=== PATIENT | male | born 1980 | race Caucasian/White ===

== ENCOUNTER 2019-12-08 16:08 | Emergency (ER) | payer MEDICAID, SELFPAY ==
[2019-12-08 16:09] VITALS: BP 128/79; PULSE 87; RESP 16; TEMP 36.9; O2SAT 97; BMI 31.3
--- NOTE | 2019-12-08 16:18 | ED.VIS.INJ ---
History of Present Illness Chief Complaint: Upper Extremity Injury Informant: Patient Onset: Yesterday Mechanism/Context: Blunt Injury Quality of Pain: Dull, Aching Location: Right hand and fingers Current Severity: Mild Maximum Severity: Moderate Worsened by: Making a fist or grasping something Relieved by: Rest Narrative: Patient is a 39-year-old [id number]-loerliag male who presents with injury to his right hand and fingers. This occurred yesterday helping his brother work on a car project gave out. He presents because of increased swelling, discoloration and pain. He denies paresthesia, anesthesia or motor weakness. He is a smoker. He has no history of peripheral vascular disease. He has no history of diabetes. Tetanus Immunization: 5-10 years Prior similar symptoms: No Recent Illness/Hospitalization: No - Past Medical History (1) No significant past medical history Status: Acute Past Medical History - Allergies and Home Meds Allergies/Adverse Reactions: Allergies No Known Allergies Allergy (Verified 12/08/19 16:11) Primary Care Physician: Sukhdev Mart MD [Primary Care Provider] - Past Medical History: None Surgical History: no surgical history Lives: Alone Smoking Status: Current every day smoker Alcohol: Sober - 2012 Drugs: None Review of Systems General: Denies: Chills, Fever, Malaise Musculoskeletal: Reports: Swelling, Extremity Pain. Denies: Myalgias, Arthralgias, Neck pain, Back pain Skin: Denies: Rash, Abscess, Abrasions, Wounds Neurological: Denies: Weakness, Parasthesia, Numbness Hematologic: Denies: Easy bruising, Easy bleeding Physical Exam Vital Signs/Narrative: Vital Signs Temp Pulse Resp BP Pulse Ox 12/08/19 16:09 98.4 F 87 16 128/79 H 97 Inital Vital Signs reviewed: Yes General: Well nourished, Well developed Head: Normocephalic, Atraumatic Eyes: Perrl, EOMI. Negative for: Pale conjunctiva, Scleral icterus Cardiovascular: Regular rate, Regular rhythm Respiratory: No distress Extremeties: The right hand is swollen with ecchymosis noted over the third and fourth metacarpal. There is discoloration proximal phalanx region of the right long and ring finger. There is no rotational malalignment. Capillary refill is normal. Sensation is normal. The extensor commonness, extensor minimize and extensor indices tendon are intact. Flexor mechanism intact. There is no subungual hematoma of the fingers or thumb. Skin: Normal color, No rash, Trauma. Negative for: Cyanosis, Diaphoresis, Jaundice Neurological: Alert, Oriented x3, Cranial nerves II-XII grossly intact, Normal Strength, Normal Sensation Psychological: Normal affect, Normal Mood - Glascow Coma Scale Eye Opening: Spontaneous Motor: Obeys Commands Verbal: Oriented Coma Scale Total: 15 Diagnostic/Tx/Re-eval Chest X-Ray - ED: Read by ED Physician, - - 3 view x-ray of the hand reveals no evidence of fracture, foreign body, subluxation or dislocation. There is soft tissue swelling. - Medical Decision Making X-ray of the hand was obtained to rule out fracture. Differential contusion versus fracture. ED Disposition - Plan for ED Patient: Disposition: Home or Assisted Living Diagnosis: Contusion of right hand including fingers Instructions: CRUSH INJURY, Hand/Finger Referrals: Sukhdev Mart MD [Primary Care Provider] - Additional Instructions: Apply ice 20 to 30 minutes per application 6 times a day. Take either 4 ibuprofen tablets every 8 hours or 2 Aleve tablets every 12 hours for next 3 days.
--- NOTE | 2019-12-08 16:30 | RAD_ITS ---
STUDY: X-RAY - RIGHT HAND REASON FOR EXAM: Male, 39 years old. 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 COMPARISON: None. FINDINGS: Normal radiocarpal articulation. Normal distal radioulnar joint. Normal visualized carpal bones. Normal carpal articulations Normal carpometacarpal articulation of the thumb. Normal second through fifth carpometacarpal joints. Old healed fracture of the fifth metacarpal.. Normal metacarpophalangeal joint of the thumb. Normal interphalangeal joint of the thumb. Normal proximal and distal phalanges of the thumb. Normal metacarpophalangeal joints of the second through fifth fingers. Normal proximal and distal interphalangeal joints of the second through fifth fingers. Normal phalanges of the second through fifth fingers. The soft tissue structures are unremarkable. RAD/Hand Min 3 Views IMPRESSION: Old healed fracture of the fifth metacarpal. No acute fracture or dislocation Electronically Signed: Sukhdev Ndiaye MD at 16:44 EDT , Service support ,
[2019-12-08 17:50] VITALS: PULSE 98; RESP 18; O2SAT 96
== END 2019-12-08 17:54 | disposition home or self-care (01) ==
PROVIDERS: Emergency Provider Emergency Medicine; PCP Family Medicine
DX: S60.221A Contusion of right hand, initial encounter (principal); X58.XXXA Exposure to other specified factors, initial encounter; Y93.9 Activity, unspecified; Y92.9 Unspecified place or not applicable; F17.200 Nicotine dependence, unspecified, uncomplicated
CPT/HCPCS: 73130; 99282

== ENCOUNTER 2020-01-02 23:44 | Emergency (ER) | payer MEDICAID, SELFPAY ==
[2020-01-02 23:45] VITALS: BP 113/79; PULSE 87; RESP 19; TEMP 36.9; O2SAT 97; BMI 30.9
[2020-01-02 23:48] VITALS: O2SAT 95
--- NOTE | 2020-01-02 23:54 | NURSING ---
when gathering further information from the pt he does that he recently was released from [facility] and has had a cough for a week with no relief with medication and has had some fatigue.
--- NOTE | 2020-01-03 00:26 | ED.DCSUM_ITS ---
History of Present Illness Chief Complaint: Cough Informant: Patient Onset: Weeks - 1 Context: Gradual Onset Timing: Continuous Quality: [employer] cough Location: chest Current Severity: Moderate Maximum Severity: Moderate Worsened by: - - coughing Relieved by: - - nothing Associated Symptoms: Nasal Congestion, Nonproductive cough. Negative for: Headache, Myalgias, Nausea, Vomiting, Diarrhea, Shortness of Breath, Chest Pain, Hemoptysis Narrative: Patient states he is healthy, he was incarcerated for a couple years but got out of retirement 2 months ago and has been basically staying home since then, during the national coronavirus emergency. He feels like he has bronchitis. He has been sick for about a week, no fevers. He has developed no dyspnea. Cough has been nonproductive. Still smoking. States he was doing some things around the trailer he lives in with his family, since no work has been done for the last couple years when he was in retirement, and he was tor[place] on a ranch when he had sudden onset of pain in the left shoulder yesterday. He states this is happened multiple times in the past. He can still move it but it hurts. When he turns his head/neck to the right, the pain increases along the trapezius into the subacromial area and into the lateral aspect of the biceps and feels burning. States he has a history of degenerative disc issue in the neck. - Past Medical History (1) DDD (degenerative disc disease), cervical Status: Chronic Past Medical History - Allergies and Home Meds Allergies/Adverse Reactions: Allergies No Known Allergies Allergy (Verified 01/02/20 23:45) Primary Care Physician: Sukhdev Mart MD [Primary Care Provider] - Surgical History: no surgical history Lives: With Family Smoking Status: Current every day smoker Drugs: None Review of Systems General: Denies: Chills, Fever, Sweats Eyes: Denies: Visual changes - bilaterally, Diplopia ENT: Reports: Rhinorrhea - And congestion. Denies: Bilateral ear pain, Sore throat Cardiovascular: Denies: Chest pain, Palpitations Respiratory: Reports: Cough. Denies: Dyspnea, Sputum, Dyspnea on exertion, Orthopnea Gastrointestinal: Denies: Abdominal pain, Nausea, Vomiting, Diarrhea, Melena, Hematochezia Genitourinary: Denies: Dysuria, Hematuria, Frequency Musculoskeletal: Reports: Neck pain, Extremity Pain - Left shoulder and neck. Denies: Back pain, Swelling Skin: Denies: Rash, Wounds Neurological: Denies: Headache, Weakness, Numbness Physical Exam Vital Signs/Narrative: Vital Signs Temp Pulse Resp BP Pulse Ox 01/02/20 23:45 98.4 F 87 19 H 113/79 97 Inital Vital Signs reviewed: Yes General: Well nourished, Well developed, - - No acute distress. Conversational in full sentences. Head: Normocephalic, Atraumatic Eyes: Perrl, EOMI Ears: Normal external canal, TM's clear Nose: Normal Inspection, Congestion. Negative for: Purulent Drainage Mouth/Throat: Normal Inspection, No Posterior Erythema, Airway Patent Neck: Supple, Nontender, No Lymphadenopathy, No Meningismus Cardiovascular: Regular rate, Regular rhythm, No murmurs. Negative for: Tachycardia Respiratory: No distress, CTA bilaterally, Chest nontender Abdomen: Soft, Nontender, Nondistended, Normal bowel sounds Back: Nontender, Normal Inspection. Negative for: CVA tenderness Extremities: No edema, Tenderness - Diffuse about left shoulder including biceps tendon anteriorly, AC joint without swelling or deformity, subacromial area, and supraspinous trapezius, all the way into the cervical paraspinal musculature. Full range of motion of the left shoulder, but pain with reaching overhead more so than abduction. Skin: Normal color, No rash, No Trauma Neurological: Alert, Oriented x3, Cranial nerves II-XII grossly intact, Normal Strength, Normal Sensation, Normal Gait Psychological: Normal affect, Normal Mood Diagnostic/Tx/Re-eval - Medical Decision Making At this time supportive care with anti-inflammatories and rest of the left shoulder is indicated. I do not think he needs x-rays emergently. With regards to his respiratory illness, I am less inclined to think he has coronavirus infection given his symptoms of rhinorrhea and congestion and lack of a fever for the past week with this cough/illness. I do not think he needs a chest x- ray since he has no dyspnea and is not hypoxic at 97% on room air. His other vital signs are normal. He is given prescriptions for supportive care including an albuterol inhaler for bronchospasm, Tessalon Perles, Naprosyn, as well as doses of antitussive and Toradol here in the ER prior to discharge. Discussed all this along with orthopedic follow-up for recurrent issues in the shoulder, he is comfortable with this plan we discussed reasons to return. ED Disposition - Plan for ED Patient: Disposition: Home or Assisted Living Diagnosis: Acute bronchitis, Left shoulder strain Instructions: ED Shoulder Sprain, Acute Bronchitis Prescriptions: Naproxen [Naprosyn] 500 mg PO BID PRN #20 tab Transmission Status: Pending to [facility] Benzonatate [Tessalon Perle] 200 mg PO TID PRN PRN #20 cap PRN Reason: Cough Transmission Status: Pending to [facility] Albuterol Inhaler [Ventolin Hfa] 1 - 2 puff INHALATION Q4H PRN PRN #1 inhaler PRN Reason: Wheezing Transmission Status: Pending to [facility] Referrals: Sukhdev Mart MD [Primary Care Provider] - 1 Week if not improving Hang Mercedes DO [STAFF PHYSICIAN] - (Call for appointment for recurring shoulder issues.)
[2020-01-03] MEDS: guaiFENesin Dm 10 ML UDC PO (00:35)
[2020-01-03] MEDS: Ketorolac 60 MG/2 ML Vial IM (00:35)
[2020-01-03] MEDS: Benzonatate 100 MG Capsule 200 MG PO (00:35)
[2020-01-03 00:58] VITALS: BP 112/63; PULSE 87; RESP 18; TEMP 36.9; O2SAT 96
== END 2020-01-03 00:58 | disposition home or self-care (01) ==
LOC: ED 01-03 00:55
PROVIDERS: Emergency Provider Emergency Medicine; PCP Family Medicine
DX: J20.9 Acute bronchitis, unspecified (principal); S46.912A Strain of unspecified muscle, fascia and tendon at shoulder and upper arm level, left arm, initial encounter; X58.XXXA Exposure to other specified factors, initial encounter; Y93.9 Activity, unspecified; Y92.9 Unspecified place or not applicable; Y99.9 Unspecified external cause status; M50.30 Other cervical disc degeneration, unspecified cervical region; F17.200 Nicotine dependence, unspecified, uncomplicated
CPT/HCPCS: 96372; 99283

== ENCOUNTER 2020-04-23 15:43 | Emergency (ER) | payer MEDICARE, MEDICAID, SELFPAY ==
[2020-04-23 15:44] VITALS: BP 159/81; PULSE 102; RESP 18; TEMP 36.4; O2SAT 96; BMI 30.6
--- NOTE | 2020-04-23 16:24 | ED.VIS.BACK ---
History of Present Illness Informant: Patient Onset: Yesterday Context: Sudden Onset Injury: Lifting, Bending Timing: Continuous Quality: Sharp Location: Lumbar Current Severity: Severe Maximum Severity: Severe Worsened by: improves with: Movement, Ambulation, Bending Relieved by: Nothing Narrative: 39-year-old male presents to the emergency department with back pain. 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 It is on the right side. It does not radiate. Is worse with movement bending twisting and lifting. He has no upper or lower extremity numbness tingling or weakness. He has not lost control of his bowel or bladder. He has not had a fever. Denies trauma. Denies any other review of systems at this time. Prior similar symptoms: No Recent Illness/Hospitalization: No <Tee Powers - Last Filed: 04/23/20 16:24> <Av Guido - Last Filed: 04/23/20 17:16> Chief Complaint: Other, Pain/Inj Past Medical History Prior records reviewed: Yes Past Medical History: None Surgical History: no surgical history Lives: With Family Smoking Status: Current every day smoker Alcohol: Occasional Drugs: None <Tee Powers - Last Filed: 04/23/20 16:24> <Av Guido - Last Filed: 04/23/20 17:16> - Allergies and Home Meds Allergies/Adverse Reactions: Allergies No Known Allergies Allergy (Verified 04/23/20 15:46) Primary Care Physician: Sukhdev Mart MD [Primary Care Provider] - Review of Systems All systems negative except as indicated General: Denies: Chills, Fever, Sweats Eyes: Denies: Visual changes - bilaterally, Diplopia ENT: Denies: Rhinorrhea, Sore throat Cardiovascular: Denies: Chest pain, Palpitations Respiratory: Denies: Dyspnea, Cough, Dyspnea on exertion Gastrointestinal: Denies: Abdominal pain, Nausea, Vomiting, Diarrhea, Melena, Hematochezia Genitourinary: Denies: Dysuria, Hematuria, Frequency Musculoskeletal: Reports: Back pain. Denies: Myalgias, Arthralgias, Neck pain, Swelling, Extremity Pain Skin: Denies: Rash, Wounds Neurological: Denies: Headache, Weakness, Numbness <Tee Powers - Last Filed: 04/23/20 16:24> Physical Exam Vital Signs/Narrative: Vital Signs Temp Pulse Resp BP Pulse Ox 04/23/20 15:44 97.5 F L 102 H 18 159/81 H 96 Inital Vital Signs reviewed: Yes General: Well nourished, Well developed Head: Normocephalic, Atraumatic Eyes: Perrl, EOMI ENT: Moist mucous membranes, No rhinorrhea Neck: Supple, Nontender Cardiovascular: Regular rate, Regular rhythm, No murmurs Respiratory: No distress, CTA bilaterally, Chest nontender Abdomen: Soft, Nontender, Nondistended, Normal bowel sounds Back: Normal Inspection, Paraspinal Tenderness, Negative SLR - Right, Negative SLR - Left. Negative for: Spinal tenderness, CVA tenderness Extremeties: Nontender, No edema Skin: Normal color, No rash Neuro: Alert, Oriented, Normal Strength, Normal Sensation, Normal DTR, Normal Gait, Normal Reflexes Psychological: Normal affect, Normal Mood <Tee Powers - Last Filed: 04/23/20 16:24> Vital Signs/Narrative: Vital Signs Temp Pulse Resp BP Pulse Ox 04/23/20 15:44 97.5 F L 102 H 18 159/81 H 96 <Av Guido - Last Filed: 04/23/20 17:16> Diagnostic/Tx/Re-eval - Medical Decision Making Patient presents with back pain. Exam is consistent with a lumbar strain. He has no signs or symptoms of cauda equina syndrome. He was reassured. I will prescribe him both Naprosyn and Flexeril. I advised him to rest and ice. He provided a note for work. I will discharge him home and refer him to a primary care physician for follow-up and I given return precautions. He is agreeable with plan of care and all questions are answered. 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 c/o right lower paraspinal back pain and 1 to 2-week history of right hand pain and swelling. Denies any hand trauma. Patient states he does a lot of heavy lifting with work. States his hands have been having swelling and small uncomfortable try to open close it. Well-appearing white male. Vital signs stable afebrile. HEENT exam unremarkable. Lungs are clear. Heart regular rhythm. Abdomen soft nontender. Extremities moves all 4. Neurovascular intact. Specifically his right hand is mildly swollen. He has tenderness to the carpal tunnel to palpation really does not send lightening strength into his middle digits. He is able to flex and extend his hand. There is no signs of infection no colitis. No bony deformity. Back is reproducible right paraspinal tenderness consistent with musculoskeletal etiology. Impression: Right back muscle strain and pain Right hand pain and swelling rule out carpal tunnel <Av Guido - Last Filed: 04/23/20 17:16> ED Disposition <Tee Powers - Last Filed: 04/23/20 16:24> <Av Guido - Last Filed: 04/23/20 17:16> - Plan for ED Patient: Disposition: Home or Assisted Living Diagnosis: Acute lumbar myofascial strain, DDD (degenerative disc disease), cervical Instructions: ED LUMBAR SPRAIN/STRAIN Prescriptions: cycloBENZAPRine HCl [Flexeril] 10 mg PO TID PRN #20 tab PRN Reason: Muscle Spasm Prescription Printed Naproxen [Naprosyn] 500 mg PO BID #14 tab Prescription Printed Referrals: Sukhdev Mart MD [Primary Care Provider] -
[2020-04-23] MEDS: HYDROcodone Bitartrate/Apap 5/325 Tablet PO (17:23)
== END 2020-04-23 17:28 | disposition home or self-care (01) ==
LOC: ED 16:48
PROVIDERS: Emergency Provider Physician Assistant Medical; PCP Family Medicine
DX: M79.641 Pain in right hand (principal); M79.89 Other specified soft tissue disorders; S16.1XXA Strain of muscle, fascia and tendon at neck level, initial encounter; S39.012A Strain of muscle, fascia and tendon of lower back, initial encounter; X58.XXXA Exposure to other specified factors, initial encounter; F17.200 Nicotine dependence, unspecified, uncomplicated
CPT/HCPCS: 99282

== ENCOUNTER 2021-02-05 17:55 | Emergency (ER) | payer MEDICARE, MEDICAID, SELFPAY ==
[2021-02-05 17:56] VITALS: BP 110/72; PULSE 107; RESP 18; TEMP 36.8; O2SAT 96; BMI 34.0
--- NOTE | 2021-02-05 18:33 | EX.ED.DYSGE1 ---
HPI History of Present Illness Chief Complaint: Cough Informant: patient Narrative Narrative: Patient is a 40-year-old male who presents to the emergency department for cough. This is been present over the past 3 or 4 days. He says it has occasionally been productive of yellow sputum. He denies any fevers or chills. He has a headache every time he coughs. He states he has not been able to get much sleep due to his persistent cough. He denies any significant shortness of breath. No chest pain. He states that one of his kids had a cough yesterday and has improved. No known coronavirus exposures. He has not got his Covid vaccine. He denies any significant body aches. No nausea/vomiting or diarrhea. No neck stiffness or rashes. He is a current everyday smoker although he has not been since this started. Has been taking [id number] cough medications which has not been giving him significant relief. He did try to use his inhaler as well which has not helped. [facility] Medical History (Updated 02/05/21 @ 18:[address] Hang Cedillo DO) DDD (degenerative disc disease) Home Medications quetiapine [Seroquel] 50 mg PO BID 08/14/17 [History Last Taken Unknown] sertraline 50 mg PO DAILY 08/14/17 [History Last Taken Unknown] albuterol sulfate 1 - 2 puff INHALATION Q4H PRN PRN #1 inhaler 01/03/20 [Rx Last Taken Unknown] benzonatate 200 mg PO TID PRN PRN #20 cap 01/03/20 [Rx Last Taken Unknown] naproxen 500 mg PO BID PRN #20 tab 01/03/20 [Rx Last Taken Unknown] cyclobenzaprine 10 mg PO TID PRN #20 tab 04/23/20 [Rx Last Taken Unknown] naproxen 500 mg PO BID #14 tab 04/23/20 [Rx Last Taken Unknown] benzonatate [Tessalon Perles] 100 mg PO BID PRN #14 cap 02/05/21 [Rx Last Taken Unknown] Allergy/AdvReac Type Severity Reaction Status Date / Time No Known Allergies Allergy Verified 02/05/21 17:55 Social History Smoking Status: Current every day smoker ROS ROS ED Constitutional Constitutional ED: Denies chills or fever(s) Eyes Eyes: Denies change in vision ENT ENT ED: Denies epistaxis or rhinorrhea Cardiovascular Cardiovascular: Denies chest pain or palpitations Respiratory/Chest Respiratory/Chest: Reports cough; Denies dyspnea or dyspnea on exertion Gastrointestinal Gastrointestinal: Denies abdominal pain, diarrhea, nausea or vomiting Musculoskeletal Musculoskeletal: Denies back pain or neck pain Integumentary Denies rash Neurologic Neurologic: Reports headache(s); Denies dizziness or weakness EXAM Physical Exam Const Vital Signs: 02/05/21 17:56 02/05/21 18:11 Temperature 98.2 F Temperature Source Temporal Pulse Rate 107 H Respiratory Rate 18 Respiratory Effort Normal Non-Labored Blood Pressure 110/72 Blood Pressure Mean 84 Pulse Ox 96 Oxygen Delivery Method Room Air Positive well nourished and well developed General Appearance ED: well developed and NAD HEENT Reports normocephalic, head/scalp atraumatic and moist mucous membranes Eyes PERRL and EOMs intact bilaterally Neck supple General: Negative for tenderness Chest Wall inspection of chest normal Resp normal respiratory effort and clear to auscultation bilaterally Auscultation: Negative for rales, rhonchi or wheezes Cardio regular rate, regular rhythm and no murmurs GI normal to inspection, nondistended, normoactive bowel sounds and non-tender Palpation: soft; Negative for guarding or rebound tenderness present Extremity normal to inspection General Extremety ED: Negative for edema or tenderness General Extremity: Negative for edema Neuro no sensory deficits noted Sensorium / Orientation: alert Motor Exam: strength 5/5 throughout Psych mental status grossly normal Skin no rashes or lesions noted MDM MDM MDM Narrative Medical decision making narrative: Patient presents to the emergency department for cough and headache whenever he coughs. His main concern was getting rid of the cough. I did offer a Covid test as well as chest x-ray but patient is refusing. He just wants medications to help him feel better. Patient symptoms are most likely viral in nature. We will write him a prescription for Tessalon Perles as he states that this has helped before. He is to self isolate until resolution of symptoms. Return precautions are reviewed with him including developing significant fever/chills or shortness of breath. He understands and is agreeable this plan. Will discharge home in stable condition. All questions answered. Discharge Plan Triage Chief Complaint: Cough ED Provider: Hang Cedillo Dx/Rx/DC Orders Clinical Impression: Cough, URI (upper respiratory infection) Instructions: ED URI, Viral, No Abx (Adult) Prescriptions: New benzonatate [Tessalon Perles] 100 mg capsule 100 mg PO BID PRN (Reason: cough) Qty: 14 RF: 0 No Action sertraline 50 MG tablet 50 mg PO DAILY RF: 0 quetiapine [Seroquel] 50 MG tablet 50 mg PO BID RF: 0 benzonatate 100 MG capsule 200 mg PO TID PRN PRN (Reason: Cough) Qty: 20 RF: 0 albuterol sulfate 1 INHALER inhaler 1 - 2 puff inhalation Q4H PRN PRN (Reason: Wheezing) Qty: 1 RF: 0 naproxen 500 MG tablet 500 mg PO BID PRN Qty: 20 RF: 0 cyclobenzaprine 10 MG tablet 10 mg PO TID PRN (Reason: Muscle Spasm) Qty: 20 RF: 0 naproxen 500 MG tablet 500 mg PO BID Qty: 14 RF: 0 Primary Care Provider: Sukhdev Mart Referrals: Sukhdev Mart MD [Primary Care Provider] - 3-5 Days if not improving Disposition Disposition: Home, self care Discharge Date/Time: 02/05/21 18:39
== END 2021-02-05 18:39 | disposition home or self-care (01) ==
LOC: ED 18:36
PROVIDERS: Emergency Provider Emergency Medicine; PCP Family Medicine
DX: R05 Cough (principal); J06.9 Acute upper respiratory infection, unspecified; F17.200 Nicotine dependence, unspecified, uncomplicated; Z79.1 Long term (current) use of non-steroidal anti-inflammatories (NSAID)
CPT/HCPCS: 99283

== ENCOUNTER 2021-04-16 02:31 | Emergency (ER) | payer MEDICARE, MEDICAID, SELFPAY ==
[2021-04-16 02:32] VITALS: BP 137/94; PULSE 134; RESP 24; TEMP 36.7; O2SAT 98; BMI 30.6
--- NOTE | 2021-04-16 04:09 | EX.ED.DYSGE1 ---
HPI History of Present Illness Chief Complaint: Other, Pain/Inj Informant: patient Onset/Context/Timing Onset: Today Context: Sudden Onset Timing: Continuous Quality: Dull Location: Right neck and trapezius Worsened by: Certain movements Relieved by: Ibuprofen, naproxen Narrative Narrative: Patient presents with right-sided neck pain that began today. Patient states he turned his head and felt a pop. Patient states that his pain has been constant since that time. Patient describes his pain as dull. Patient states it is worse with certain movements. Patient states he has been taking ibuprofen and naproxen with some relief. Patient states that he called off work because of the pain. Patient states he needs a work note to return to work or else he will get fired. 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 Eliseo Joy DO) History of appendectomy Social History Smoking Status: Current every day smoker tobacco type: cigarettes ROS ROS ED Constitutional Constitutional ED: Denies chills or fever(s) Eyes Eyes: Denies blurry vision or change in vision ENT ENT ED: Denies rhinorrhea or sore throat Cardiovascular Cardiovascular: Denies chest pain or palpitations Respiratory/Chest Respiratory/Chest: Denies cough or dyspnea Gastrointestinal Gastrointestinal: Denies nausea or vomiting Genitourinary Genitourinary ED: Denies dysuria or hematuria Musculoskeletal Musculoskeletal: Denies back pain or neck pain Integumentary Denies abscess or rash Neurologic Neurologic: Denies headache(s) or weakness Allergic/Immunologic Allergic/Immunologic ED: Denies mouth swelling or urticaria EXAM Physical Exam Const Vital Signs: 04/16/21 02:32 04/16/21 02:46 Temperature 98.1 F Temperature Source Oral Pulse Rate 134 H Respiratory Rate 24 H Respiratory Effort Normal Respiratory Pattern Normal Blood Pressure 137/94 H Blood Pressure Mean 108 Pulse Ox 98 Oxygen Delivery Method Room Air Positive well nourished and well developed General Appearance ED: well developed HEENT Reports moist mucous membranes Neck no JVD Neck Narrative: There is tenderness over the right cervical paraspinal muscles. There is also tenderness over the right trapezius area. There is no midline tenderness. There is no bony crepitance or step-off. There is good range of motion of the cervical spine. Strength is 5/5 bilaterally upper and lower extremities. There are no sensory deficits noted. General: tenderness Neuro oriented x3, CN's II-XII intact bilaterally and no sensory deficits noted Sensorium / Orientation: alert Motor Exam: strength 5/5 throughout Psych mental status grossly normal MDM MDM MDM Narrative Medical decision making narrative: I do not feel x-rays are necessary at this time. Patient was instructed to continue using ice to the area. Patient was instructed to continue taking ibuprofen or naproxen as needed for pain. Patient was given a note for work for today. Patient was instructed to follow-up with his primary care physician in 5 to 7 days. Patient understood and was agreeable with the plan. All questions were answered. Discharge Plan Triage Chief Complaint: Other, Pain/Inj ED Provider: Eliseo Joy Dx/Rx/DC Orders Clinical Impression: Cervical myofascial strain Instructions: ED Neck Sprain or Strain Prescriptions: No Action albuterol sulfate 1 INHALER inhaler 1 - 2 puff inhalation Q4H PRN PRN (Reason: Wheezing) Qty: 1 RF: 0 ibuprofen 800 mg Tablet 800 mg PO TID PRN (Reason: Pain) RF: 0 naproxen 500 MG tablet 500 mg PO BID PRN PRN (Reason: Pain) RF: 0 Stand Alone Forms: ED Work / School Excuse Primary Care Provider: Sukhdev Mart Referrals: Sukhdev Mart MD [Primary Care Provider] - Disposition Disposition: Home, Self Care
== END 2021-04-16 04:26 | disposition home or self-care (01) ==
PROVIDERS: Emergency Provider Emergency Medicine; PCP Family Medicine
DX: S16.1XXA Strain of muscle, fascia and tendon at neck level, initial encounter (principal); F17.210 Nicotine dependence, cigarettes, uncomplicated; F31.9 Bipolar disorder, unspecified; J45.909 Unspecified asthma, uncomplicated; F60.3 Borderline personality disorder; F43.10 Post-traumatic stress disorder, unspecified; X58.XXXA Exposure to other specified factors, initial encounter; Y93.9 Activity, unspecified; Y92.89 Other specified places as the place of occurrence of the external cause; Y99.9 Unspecified external cause status
CPT/HCPCS: 99283

== ENCOUNTER 2021-06-11 09:55 | Emergency (ER) | payer MEDICARE, MEDICAID, SELFPAY ==
[2021-06-11 09:56] VITALS: BP 138/91; PULSE 97; RESP 16; TEMP 36.4; O2SAT 99; BMI 30.2
--- NOTE | 2021-06-11 10:29 | EDS_ITS ---
HPI History of Present Illness Chief Complaint: Back Narrative Narrative: 41-year-old male presenting with mid back pain. He states that he has been moving a lot of furniture because his sister needed assistance with this. He states that his back pain seems to be bilateral in the mid back. It is worse with twisting and bending. Patient has no paresthesias. No loss of bladder or bowel control. No direct trauma. He is ambulatory. 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 PTSD (post-traumatic stress disorder) Smoker Home Medications cyclobenzaprine 10 mg PO TID PRN #20 tablet 06/11/21 [Rx Last Taken Unknown] naproxen [Naprosyn] 500 mg PO BID PRN #20 tab 06/11/21 [Rx Last Taken Unknown] Allergy/AdvReac Type Severity Reaction Status Date / Time No Known Allergies Allergy Verified 06/11/21 10:08 Surgical History History of appendectomy Social History Smoking Status: Current every day smoker tobacco type: cigarettes ROS ROS ED Constitutional Constitutional ED: Denies chills or fever(s) Eyes Eyes: Denies blurry vision or diplopia ENT ENT ED: Denies rhinorrhea or sore throat Cardiovascular Cardiovascular: Denies chest pain or palpitations Respiratory/Chest Respiratory/Chest: Denies dyspnea or sputum Gastrointestinal Gastrointestinal: Denies abdominal pain, nausea or vomiting Genitourinary Genitourinary ED: Denies dysuria or hematuria Musculoskeletal Musculoskeletal: Reports back pain; Denies arthralgias, myalgias or neck pain Integumentary Denies Abrasions or rash Neurologic Neurologic: Denies headache(s) or paresthesias EXAM Physical Exam Const Vital Signs: 06/11/21 09:56 Temperature 97.5 F L Temperature Source Temporal Pulse Rate 97 Respiratory Rate 16 Blood Pressure 138/91 H Blood Pressure Mean 106 Pulse Ox 99 Oxygen Delivery Method Room Air General Appearance ED: Negative for pallor HEENT Reports moist mucous membranes Negative for trauma Eyes PERRL General Eye ED: Yes pale conjunctiva Resp normal respiratory effort and clear to auscultation bilaterally Cardio regular rate and regular rhythm Back/Spine normal to inspection Back/Spine Narrative: No reproducible tenderness to palpation along the thoracic or lumbar spine. No deformities or step-off. Patient's pain is elicited with twisting of the trunk and appears to be at T11-T12 level. No bruising or rash. Extremity normal to inspection Neuro oriented x3 Sensorium / Orientation: alert Psych mental status grossly normal Skin no rashes or lesions noted General Skin Exam: Negative for jaundice or pallor MDM MDM MDM Narrative Medical decision making narrative: 41-year-old male presenting with back pain. He states this is not very significant. He thinks he started having back pain due to helping his sister move furniture. Patient also admits that he is at a homeless intermediate and did not come home before curfew last night. He states that he needs to show he was seen in the emergency room in order to get back into the homeless intermediate. In regards to the patient's pain he was given a shot of Toradol in the ED. He will be given Naprosyn and Flexeril for home. He is given return precautions. Impression: 1. Thoracic strain Discharge Plan Triage Chief Complaint: Back ED Provider: Artie Gomez Dx/Rx/DC Orders Instructions: ED Back Sprain/Strain Prescriptions: New cyclobenzaprine 10 mg tablet 10 mg PO TID PRN (Reason: Muscle Spasm) Qty: 20 RF: 0 naproxen [Naprosyn] 500 mg tablet 500 mg PO BID PRN (Reason: pain) Qty: 20 RF: 0 Primary Care Provider: Sukhdev Mart Referrals: Sukhdev Mart MD [Primary Care Provider] - Disposition Disposition: Home, Self Care
[2021-06-11] MEDS: Ketorolac 15 MG/ML Vial IM (10:39)
== END 2021-06-11 10:57 | disposition home or self-care (01) ==
LOC: ED 10:42
PROVIDERS: Emergency Provider Student in an Organized Health Care Education/Training Program; PCP Family Medicine
DX: S29.012A Strain of muscle and tendon of back wall of thorax, initial encounter (principal); X58.XXXA Exposure to other specified factors, initial encounter; F17.210 Nicotine dependence, cigarettes, uncomplicated; F31.9 Bipolar disorder, unspecified; J45.909 Unspecified asthma, uncomplicated; Z79.1 Long term (current) use of non-steroidal anti-inflammatories (NSAID); Z59.0 Homelessness; F60.3 Borderline personality disorder; F43.10 Post-traumatic stress disorder, unspecified
CPT/HCPCS: 96372; 99282

== ENCOUNTER 2022-06-17 14:04 | Emergency (ER) | payer MEDICARE, MEDICAID, SELFPAY ==
[2022-06-17 14:05] VITALS: BP 138/82; PULSE 96; RESP 18; TEMP 36.8; O2SAT 100; BMI 28.2
--- NOTE | 2022-06-17 14:28 | EX.ED.DYSGE1 ---
HPI History of Present Illness Chief Complaint: Abscess Narrative Narrative: 42-year-old male presenting with right forearm pain. He states he thinks he got bit by something a couple of days ago. He noticed an area of redness on the right forearm on the medial surface dorsally. He states been draining fluid. He states he thought he had a fever but he has not checked with a thermometer. He states I do not feel sick. He states he has a history of a boil behind his ear before but he is unsure of a history of MRSA. He denies any trauma. Patient states this is spontaneously draining on its own. 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 PTSD (post-traumatic stress disorder) Smoker Home Medications cyclobenzaprine 10 mg tablet 10 mg PO TID PRN Muscle Spasm #20 TABLETS 06/11/21 [Rx Last Taken Unknown] naproxen 500 mg tablet (Naprosyn) 500 mg PO BID PRN pain #20 tabs 06/11/21 [Rx Last Taken Unknown] clindamycin HCl 150 mg capsule 450 mg PO TID 10 days #90 caps 06/17/22 [Rx Last Taken Unknown] naproxen 500 mg tablet (Naprosyn) 500 mg PO BID PRN pain #20 tabs 06/17/22 [Rx Last Taken Unknown] Allergy/AdvReac Type Severity Reaction Status Date / Time No Known Allergies Allergy Verified 06/17/22 14:05 Surgical History History of appendectomy Social History Smoking Status: Current every day smoker tobacco type: cigarettes ROS ROS ED Constitutional Constitutional ED: Reports chills and subjective Eyes Eyes: Denies blurry vision or change in vision ENT ENT ED: Denies rhinorrhea or sore throat Cardiovascular Cardiovascular: Denies chest pain or palpitations Respiratory/Chest Respiratory/Chest: Denies cough or dyspnea Gastrointestinal Gastrointestinal: Denies abdominal pain or constipation Genitourinary Genitourinary ED: Denies dysuria or hematuria Musculoskeletal Musculoskeletal: Reports other Details: Right forearm pain Integumentary Reports abscess and rash Neurologic Neurologic: Denies headache(s) or paresthesias Psychiatric Psychiatric: Denies anxiety or depression EXAM Physical Exam Const Vital Signs: 06/17/22 14:05 Temperature 98.2 F Temperature Source Temporal Pulse Rate 96 Respiratory Rate 18 Blood Pressure 138/82 H Blood Pressure Mean 100 Pulse Ox 100 Oxygen Delivery Method Room Air Positive well nourished HEENT Reports moist mucous membranes Eyes PERRL and EOMs intact bilaterally Cardio regular rate and regular rhythm Extremity Extremity Narrative: 3 cm area of fluctuance on the dorsal medial aspect of the forearm. There is a 1.5 cm opening and this is spontaneously draining. He does have some edema around this area but there is no fluctuance. I was not able to express any more pus from the wound by squeezing anywhere else on the forearm. No lymphangitic changes. No lymphadenopathy. Neuro oriented x3 and CN's II-XII intact bilaterally Sensorium / Orientation: alert Psych mental status grossly normal Skin Skin Narrative: As documented above MDM MDM MDM Narrative Medical decision making narrative: Patient appears to have an abscess on the dorsal medial aspect of the right forearm but it is open and spontaneously draining. I do not believe he needs further incision and drainage. It was recommended to him that he soak this 4-5 times a day in hot soapy water. I will start him on clindamycin here. Patient given return precautions. Impression: 1. Right forearm abscess 2. Right forearm cellulitis Lab Data Attestation: I reviewed the patient's lab results. Discharge Plan Triage Chief Complaint: Abscess ED Provider: Artie Gomez Dx/Rx/DC Orders Instructions: ED Abscess Antibiotic Treatment Only Prescriptions: New clindamycin HCl 150 mg capsule 450 mg PO TID 10 Days Qty: 90 0RF naproxen [Naprosyn] 500 mg tablet 500 mg PO BID PRN (Reason: pain) Qty: 20 0RF No Action cyclobenzaprine 10 mg tablet 10 mg PO TID PRN (Reason: Muscle Spasm) Qty: 20 0RF naproxen [Naprosyn] 500 mg tablet 500 mg PO BID PRN (Reason: pain) Qty: 20 0RF Primary Care Provider: Sukhdev Mart Referrals: Sukhdev Mart MD [Primary Care Provider] - Disposition Disposition: Home, Self Care
[2022-06-17] MEDS: Clindamycin HCl 150 MG Capsule 450 MG PO (14:43)
[2022-06-17 14:50] VITALS: RESP 18
== END 2022-06-17 14:50 | disposition home or self-care (01) ==
PROVIDERS: Emergency Provider Student in an Organized Health Care Education/Training Program; PCP Family Medicine; Visit Provider Student in an Organized Health Care Education/Training Program
DX: L03.113 Cellulitis of right upper limb (principal); F17.210 Nicotine dependence, cigarettes, uncomplicated; L02.413 Cutaneous abscess of right upper limb
CPT/HCPCS: 99283

== ENCOUNTER 2022-07-12 16:28 | Emergency (ER) | payer MEDICARE, MEDICAID, SELFPAY ==
[2022-07-12 16:29] VITALS: BP 130/92; PULSE 88; RESP 14; TEMP 36.5; O2SAT 99; BMI 28.8
== END 2022-07-12 17:10 | disposition left against medical advice (07) ==
LOC: ED 17:13
PROVIDERS: PCP Family Medicine
DX: Z04.1 Encounter for examination and observation following transport accident (principal)

== ENCOUNTER 2024-02-21 02:44 | Emergency (ER) | payer MEDICARE, SELFPAY ==
[2024-02-21] VITALS (14 sets, daily range): BP systolic 140–168; BP diastolic 82–115; PULSE 62–119; RESP 15–18; TEMP 36.2–36.4; O2SAT 94–99; BMI 28.0
--- NOTE | 2024-02-21 02:54 | CT_ITS ---
EXAM: CT HEAD WITHOUT INTRAVENOUS CONTRAST CLINICAL INDICATION: Change in Mental Status TECHNIQUE: Multiple axial images were obtained of the head without intravenous contrast. This CT exam was performed using one or more of the following dose reduction techniques: automated exposure control, adjustment of the mA and/or kV according to patient size, and/or use of iterative reconstruction technique. RADIATION DOSE: CTDIvol = 44.99 mGy, DLP = 863.60 mGy-cm COMPARISON: No relevant prior studies available. FINDINGS: BRAIN AND EXTRA-AXIAL SPACES: Unremarkable. No intra- or extra-axial hemorrhage. No evidence of acute infarct. No intracranial mass or mass effect. There is preservation of the montiel/white matter interface. Posterior fossa structures are unremarkable. Ventricles are appropriate for age. No hydrocephalus. Basal cisterns are patent. BONES/JOINTS: Unremarkable. No discrete lytic or blastic abnormalities. SINUSES: Trace mucosal thickening in the floor of the left maxillary sinus and slight mucosal thickening in a few ethmoid air cells. MASTOID AIR CELLS: Unremarkable. Clear. ORBITS: Visualized globes, extraocular muscles, optic nerves and retrobulbar fat appear unremarkable. DENTAL: Advanced periodontal disease, there are periapical lucencies around multiple tooth roots in the maxilla. The mandible is not included. CT/Brain/Head without Contrast IMPRESSION: No acute findings in the head/brain. Advanced periodontal disease. Electronically Signed: Chelsy Barrios MD at 5:25 EDT ,
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
[2024-02-21] MEDS: Acetaminophen 500 MG Tablet 1000 MG PO (03:00)
[2024-02-21] MEDS: LORazepam 2 MG/ML Syringe IV (03:01)
[2024-02-21 03:11] LABS: Absolute Lymphocyte Count 3.24 X10^3/uL (0.83-4.51); Absolute Neutrophil Count 9.6 X10^3/uL (2.0-7.7); Basophil% 0.7 % (0-1); Eosinophil# 0.18 X10^3/uL; Eosinophils% 1.2 % (0-5); Hematocrit 46.6 % (40-54); Hemoglobin 15.5 g/dL (13.0-16.5); Lymphocyte # 3.24 X10^3/ul (0.83-4.51); Lymphocyte % 22.2 % (19-41); Mean Corp Hgb Conc 33.3 g/dL (32-36); Mean Corpuscular Volume 90.1 fL (80-94); Mean Platelet Vol. 9.7 fl (6.2-12.0); Monocyte# 1.43 X10^3/uL; Monocyte% 9.8 % (0-10); NRBC Flagged by Analyzer 0 % (0-5); Neutrophil # 9.62 X10^3/uL (2.7-7.7); Neutrophil % 65.8 % (47-70); Platelet Count 395 K/mm3 (150-450); RBC Distribution Width CV 13.3 % (11.6-14.6); RBC Distribution Width SD 44.2 fl (35.1-43.9); Red Blood Count 5.17 M/mm3 (4.6-6.2); White Blood Count 14.6 K/mm3 (4.4-11.0)
[2024-02-21 03:57] LABS: ALB/GLOB Ratio 1.2 RATIO (0.9-2.4); AST(SGOT) 22 U/L (15-37); Alanine Aminotransfer ALT/SGPT 26 U/L (16-61); Albumin, Serum 4.1 g/dL (3.2-5.0); Alkaline Phosphatase 75 U/L (45-117); Anion Gap 11 (5-15); BUN 14 mg/dL (7-18); BUN/Creat Ratio 9.8 RATIO (10-20); Calcium,Total 9.2 mg/dL (8.5-10.1); Chloride 108 mmol/L (98-107); Creatinine, Serum 1.43 mg/dL (0.70-1.30); EST Glomerular Filtration Rate 57 mL/min (>60); Est Glom Filt Rate - Afr Amer 69 mL/min (>60); Estimated Creatinine Clearance 80.65 ml/min; Globulin 3.4 g/dL (2.2-4.2); Glucose 149 mg/dL (74-106); Potassium 3.2 mmol/L (3.5-5.1); Protein, Total 7.5 g/dL (6.4-8.2); Sodium Level 141 mmol/L (136-145)
[2024-02-21 04:19] LABS: Acetaminophen (Tylenol) Level < 2.0 ug/mL (10.0-30.0); Alcohol, Blood (Medical)-Serum < 3.0 mg/dL; Salicylate 2.3 mg/dL (2.8-20.0)
[2024-02-21 04:52] LABS: Amphetamine Urine VISTA POSITIVE (<1000 ng/mL); Barbiturate Urine VISTA NEGATIVE (< 200 ng/mL); Benzodiazepine Urine VISTA NEGATIVE (< 200 ng/mL); Cocaine Urine VISTA NEGATIVE (< 300 ng/mL); Ecstacy Urine VISTA POSITIVE (< 500 ng/mL); Methadone Urine VISTA NEGATIVE (< 300 ng/mL); PCP Urine VISTA NEGATIVE (< 25 ng/mL); THC Urine VISTA POSITIVE (< 50 ng/mL); Vista UDS pH Range 4
--- NOTE | 2024-02-21 15:34 | NURSING ---
FAXED CHART TO CRISIS
--- NOTE | 2024-02-21 16:13 | NURSING ---
CRISIS IN ROOM
== END 2024-02-21 16:55 | disposition home or self-care (01) ==
PROVIDERS: Emergency Medicine; Emergency Provider Emergency Medicine; PCP Family Medicine; Visit Provider Emergency Medicine
DX: F22 Delusional disorders (principal); F60.3 Borderline personality disorder; S00.81XA Abrasion of other part of head, initial encounter; F17.210 Nicotine dependence, cigarettes, uncomplicated; R51.9 Headache, unspecified; R45.1 Restlessness and agitation; X58.XXXA Exposure to other specified factors, initial encounter
CPT/HCPCS: 70450; 80053; 80307; 80320; 80329; 85025; 96374; 99284; G0480

== ENCOUNTER 2024-07-31 20:17 | Emergency (ER) | payer MEDICARE, MEDICAID, SELFPAY ==
[2024-07-31 20:17] VITALS: BP 141/77; PULSE 104; RESP 18; TEMP 36.7; O2SAT 99
[2024-07-31 21:05] LABS: Mucous, Urine 0 SEEN /hpf (<or=2+); Squamous Epithelial Cells - UA 0 SEEN /hpf (0-5)
[2024-07-31 21:08] LABS: Color, Urine Yellow (Yellow); Glucose, Dipstick Normal (Normal); Ketone-Dipstick Negative (Negative); Leukocyte Esterase-Dipstick 500 /ul (Negative); Nitrite-Dipstick Negative (Negative); Occult Blood-Urine 50 /ul (Negative); Protein-Dipstick 100 mg/dl (Negative); Urine Bilirubin Dipstick Negative (Negative); Urine Clarity Turbid (Clear); Urine Urobilinogen 4 mg/dl (Normal)
[2024-07-31 21:17] LABS: Bacteria 1+ /hpf (None Seen); Red Blood Cells-Urine 0-5 SEEN /hpf (0-5); White Blood Cells >100 SEEN /hpf (0-5)
[2024-07-31 21:20] VITALS: BP 124/82; PULSE 108; RESP 18; TEMP 37.7; O2SAT 97
[2024-07-31 21:26] VITALS: BMI 29.6
[2024-07-31 22:00] VITALS: BP 122/79; PULSE 105; RESP 16; TEMP 37.3; O2SAT 96
[2024-07-31] MEDS: Acetaminophen 500 MG Tablet 1000 MG PO (22:01)
[2024-07-31 22:02] VITALS: TEMP 37.3
[2024-07-31 22:16] LABS: Absolute Lymphocyte Count 1.93 X10^3/uL (0.83-4.51); Absolute Neutrophil Count 9.9 X10^3/uL (2.0-7.7); Basophil# 0.08 X10^3/uL; Basophil% 0.6 % (0-1); Eosinophil# 0.17 X10^3/uL; Eosinophils% 1.2 % (0-5); Hematocrit 43.5 % (40-54); Hemoglobin 14.9 g/dL (13.0-16.5); Lymphocyte # 1.93 X10^3/ul (0.83-4.51); Mean Corp Hgb Conc 34.3 g/dL (32-36); Mean Corpuscular Hgb 30.5 pg (27.0-32.0); Mean Corpuscular Volume 89.1 fL (80-94); Monocyte# 1.67 X10^3/uL; Monocyte% 12.1 % (0-10); NRBC Flagged by Analyzer 0 % (0-5); Neutrophil # 9.89 X10^3/uL (2.7-7.7); Neutrophil % 71.5 % (47-70); POSITIVE DIFFERENTIAL YES; Platelet Count 348 K/mm3 (150-450); RBC Distribution Width CV 13.2 % (11.6-14.6); RBC Distribution Width SD 43.6 fl (35.1-43.9); Red Blood Count 4.88 M/mm3 (4.6-6.2); White Blood Count 13.8 K/mm3 (4.4-11.0)
[2024-07-31 22:23] LABS: Differential Indicated SCAN CRITERIA MET
[2024-07-31 22:36] LABS: Anion Gap 7 (5-15); BUN 9 mg/dL (7-18); BUN/Creat Ratio 8.8 RATIO (10-20); Calcium,Total 8.6 mg/dL (8.5-10.1); Chloride 102 mmol/L (98-107); Creatinine, Serum 1.02 mg/dL (0.70-1.30); EST Glomerular Filtration Rate 84 mL/min (>60); Est Glom Filt Rate - Afr Amer 102 mL/min (>60); Glucose 120 mg/dL (74-106); Potassium 3.9 mmol/L (3.5-5.1); Sodium Level 134 mmol/L (136-145)
[2024-07-31 22:46] LABS: Differential Comment SCANNED
[2024-07-31 23:00] VITALS: BP 125/78; PULSE 98; RESP 16; TEMP 36.8; O2SAT 96
[2024-07-31 23:54] VITALS: BP 125/78; PULSE 98; RESP 16; TEMP 36.8; O2SAT 96
[2024-07-31] MEDS: Ciprofloxacin 500 MG Tablet PO (23:57)
[2024-08-01 11:29] LABS: Pathologist Review Reviewed
== END 2024-07-31 23:57 | disposition home or self-care (01) ==
PROVIDERS: Emergency Provider Emergency Medicine; PCP Family Medicine; Visit Provider Emergency Medicine
DX: R35.0 Frequency of micturition (principal); F31.9 Bipolar disorder, unspecified; R30.0 Dysuria; F43.10 Post-traumatic stress disorder, unspecified; J45.909 Unspecified asthma, uncomplicated; F17.210 Nicotine dependence, cigarettes, uncomplicated; R51.9 Headache, unspecified
CPT/HCPCS: 80048; 81001; 85025; 87086; 87088; 90471; 99284

== ENCOUNTER 2025-05-05 03:56 | Emergency (ER) | payer MEDICARE, MEDICAID, SELFPAY ==
[2025-05-05 03:58] VITALS: BP 123/85; PULSE 95; RESP 18; TEMP 36.6; O2SAT 99; BMI 28.4
--- NOTE | 2025-05-05 03:59 | EX.ED.DYSGE1 ---
HPI History of Present Illness Chief Complaint: Other, Pain/Inj Informant: patient Onset/Context/Timing Onset: Weeks (3) Context: Gradual Onset Timing: Continuous Quality: Cramping Location: Neck and right shoulder Worsened by: Movement Relieved by: Rest Narrative Narrative: Patient presents with neck pain that has been getting worse over the past 3 weeks. Patient states it became severe tonight. Patient describes it as cramping. Patient states it is over the right side of his neck and radiates to his right shoulder. Patient states it is worse with any movement of his neck. Patient states it is better with rest. Patient denies any trauma or injury. Patient denies any paresthesias or weakness. 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 PTSD (post-traumatic stress disorder) Depression Anxiety Bipolar disorder Asthma Smoker DDD (degenerative disc disease) Home Medications ?Medication ?Instructions ?Recorded ?Last Taken ?Type cyclobenzaprine 10 mg tablet 10 mg PO QHS PRN PRN Muscle Spasm 05/05/25 Unknown Rx #10 TABLETS naproxen 500 mg tablet 500 mg PO BID PRN #20 tabs 05/05/25 Unknown Rx Allergy/AdvReac Type Severity Reaction Status Date / Time No Known Allergies Allergy Verified 05/05/25 03:57 Surgical History History of appendectomy Social History Smoking Status: Current every day smoker tobacco type: cigarettes ROS ROS ED Constitutional Constitutional ED: Denies chills or fever(s) Eyes Eyes: Denies blurry vision or change in vision ENT ENT ED: Denies rhinorrhea or sore throat Cardiovascular Cardiovascular: Denies chest pain or palpitations Respiratory/Chest Respiratory/Chest: Denies cough or dyspnea Gastrointestinal Gastrointestinal: Denies nausea or vomiting Genitourinary Genitourinary ED: Denies dysuria or hematuria Musculoskeletal Musculoskeletal: Reports back pain and neck pain Integumentary Denies abscess or rash Neurologic Neurologic: Denies headache(s) or weakness Allergic/Immunologic Allergic/Immunologic ED: Denies mouth swelling or urticaria EXAM Physical Exam Const Vital Signs: 05/05/25 03:58 05/05/25 03:58 Temperature 97.8 F Temperature Source Oral Pulse Rate 95 Respiratory Rate 18 Respiratory Effort Normal Non-Labored Respiratory Pattern Normal Blood Pressure 123/85 H Blood Pressure Mean 97 Pulse Ox 99 Oxygen Delivery Method Room Air Positive well nourished and well developed Constitutional Narrative: BMI is 28.4. General Appearance ED: well developed and NAD HEENT Reports moist mucous membranes Neck supple and no JVD Neck Narrative: There is tenderness over the cervical spine and right cervical paraspinal muscles. There is no bony crepitance or step-off. Range of motion was limited in all motions of the cervical spine secondary to pain. Strength is 5/5 bilaterally in the upper extremities. There are no sensory deficits noted. Radial pulses are equal bilaterally. Neuro oriented x3, CN's II-XII intact bilaterally and no sensory deficits noted Sensorium / Orientation: alert Motor Exam: strength 5/5 throughout Psych mental status grossly normal MDM MDM MDM Narrative Medical decision making narrative: Differential diagnose includes cervical strain, cervical radiculopathy, and cervical spondylolisthesis. CT scan of the cervical spine will be obtained to assess for cervical spondylolisthesis and fracture. History & Record Review Additional record(s) reviewed:: Prior ED visit and Prior labs Radiography Diagnostic Testing: Clinical Impression(s) from Imaging Studies Cervical Spine CT 05/05/25 04:18 IMPRESSION: Straightened cervical lordosis denoting myospasm. No vertebral fractures or acute dislocation. C3-C4, C4-C5 and C5-C6: diffuse disc bulges/osteophyte complex lesion with uncovertebral arthropathy encroaching upon the related neural exit foramina. Reading Location: [place] [id number] CT scan of the cervical spine was obtained. There is no acute fracture or spondylolisthesis. There is disc bulging and osteophyte formation at C3-4, C4-5, and C5-6. This was interpreted by the radiologist and was also independently reviewed by myself. Treatment and Re-Evaluation :: Patient was given an injection of Toradol and Norflex here. Patient was advised of his findings. Patient was instructed to follow-up with his primary care physician in 5 to 7 days. Patient was also given referral for orthopedic spine. Patient was given prescriptions for Naprosyn and Flexeril. Patient was instructed to return if worse in any way. Patient understood and was agreeable with the plan. All questions were answered. Discharge Plan Triage Chief Complaint: Other, Pain/Inj ED Provider: Eliseo Joy Dx/Rx/DC Orders Clinical Impression: Cervical myofascial strain, DDD (degenerative disc disease), cervical Instructions: ED Degenerative Disk Disease, ED Neck Pain, ED Neck Sprain or Strain Prescriptions: New cyclobenzaprine 10 mg tablet 10 mg PO QHS PRN PRN (Reason: Muscle Spasm) Qty: 10 0RF naproxen 500 mg tablet 500 mg PO BID PRN Qty: 20 0RF Primary Care Provider: Sukhdev Mart Referrals: Phil Alcala MD [Med Staff - Active Staff] - 1-2 Weeks Sukhdev Mart MD [Primary Care Provider] - 3-5 Days Print Language: Maori Disposition Disposition: Home, Self Care
--- NOTE | 2025-05-05 04:18 | CT_ITS ---
PROCEDURE: SPINE CERVICAL WITHOUT CONTRAS 05/05/2025 REASON FOR EXAM: INJURY/PAIN TECHNIQUE: SPINE CERVICAL WITHOUT CONTRAS Coronal and Sagittal reconstruction series were provided. One or more dose reduction techniques were used (e.g., Automated exposure control, adjustment of the mA and/or kV according to patient size, use of iterative reconstruction technique. RADIATION DOSE SUMMARY: CTDlvol: mGy DLP: mGycm COMPARISON: none FINDINGS: Straightened cervical curve denoting myospasm. No vertebral fractures or acute dislocation. The vertebral bodies show no structural collapse or posterior neural elements fractures. No facet dislocation. Narrowed C3-C4, C4-C5 and C5-C6 disc spaces with marginal lipping of their vertebral end plates associated with opposing anterior longitudinal ligament calcifications and C4-C5 vacuum phenomenon. Intact atlanto-axial articulations with degenerative changes C3-C4, C4-C5 and C5-C6: diffuse disc bulges/osteophyte complex lesion with uncovertebral arthropathy indenting the theca and encroaching upon the related neural exit foramina. No paraspinal masses. CT/Spine Cervical without Contras IMPRESSION: Straightened cervical lordosis denoting myospasm. No vertebral fractures or acute dislocation. C3-C4, C4-C5 and C5-C6: diffuse disc bulges/osteophyte complex lesion with unco vertebral arthropathy encroaching upon the related neural exit foramina. Reading Location: [place] [id number]
[2025-05-05] MEDS: Orphenadrine 60 MG/2 ML Ampul IM (04:25)
--- OUTSIDE RECORDS SUMMARY | 2025-05-05 05:12 | XMS RPT_ITS | CCD ---
Author Organization [facility] Care Team Providers Care [employer] Name Role Phone Kranthi Lim MD Primary Care Provider Sukhdev Mart Primary Care Unavailable Av Guido Attending Unavailable Christoph Asencio Attending Unavailable Sukhdev Mart Primary Care Unavailable Kranthi Lim MD Primary Care Provider Podlogar LUMBER PILER.Rita MARTINEZ Unavailable [phone] Medications Current Medications Medication Drug Class(es) Dates Sig (Normalized) Sig (Original) amoxicillin 500 mg oral capsule (1 source) Penicillin-class Antibacterial Start: 10-20-2022 End: 10-30-2022 take 1 capsule by mouth twice daily amoxicillin (POLYMOX, AMOXIL) 500 mg capsule Take 1 capsule by mouth twice daily for 10 days. 20 capsule 0 10/20/2022 10/30/2022 Active Comment on above: Take 1 capsule by [facility] twice daily for 10 days. clindamycin 150 mg oral capsule (2 sources) Lincosamide Antibacterial Start: 06-17-2022 take 450 mg by mouth three times daily Clindamycin Hcl Active 450 MG PO THREE TIMES A DAY June 17, 2022 12:00am cyclobenzaprine hydrochloride 10 mg oral tablet (2 sources) Muscle Relaxant Start: 06-11-2021 take 10 mg by mouth three times daily Cyclobenzaprine Active 10 MG PO THREE TIMES A DAY June 11, 2021 12:00am meloxicam 15 mg oral tablet (1 source) Nonsteroidal Anti-inflammatory Drug Start: 07-31-2020 End: 02-23-2022 take 1 tablet by mouth once daily at mealtime meloxicam (MOBIC) 15 mg tablet Indications: Bilateral hand numbness , Weakness of both hands Take 1 tablet by mouth once daily. Take with food. 30 tablet 2 07/31/2020 02/23/2022 Discontinued Comment on above: Take 1 tablet by heriberto th once daily. Take with food. naproxen 500 mg oral tablet (6 sources) Nonsteroidal Anti-inflammatory Drug Start: 06-11-2021 take 1 tablet by mouth twice daily Naproxen (Naprosyn) 500 mg tablet Active 500 MG PO TWICE A DAY June 17, 2022 12:00am Start: 01-03-2020 End: 04-16-2021 take 500 mg by mouth twice daily as needed Naproxen Discontinued 500 MG PO TWICE DAILY NEEDED January 03, 2020 12:00am April 16, 2021 2:44am Problems Problem Classification Problem Date Documented Date Episodic/Chronic Acute bronchitis (2 sources) Acute bronchitis; Translations: [Acute bronchitis, unspecified] Episodic Alcohol-related disorders (4 sources) Chronic alcoholism in remission; Translations: [Alcohol dependence, in remission] 07-02-2017 Chronic Anxiety disorders (10 sources) Anxiety; Translations: [Anxiety disorder, unspecified] Chronic Genitourinary symptoms and ill-defined conditions (1 source) Dysuria; Translations: [Dysuria] Onset: 08-25-2024 Episodic Mood disorders (5 sources) Mixed bipolar affective disorder, moderate; Translations: [Bipolar disorder, current episode mixed, moderate] Chronic Other lower respiratory disease (2 sources) Cough; Translations: [Cough] Episodic Other male genital disorders (4 sources) Male erectile dysfunction, unspecified; Translations: [Impotence of organic origin] 07-02-2017 Chronic Other nutritional; endocrine; and metabolic disorders (4 sources) Obese class I; Translations: [Obesity, unspecified] 07-02-2017 Chronic Other upper respiratory infections (4 sources) Upper respiratory infection; Translations: [Acute upper respiratory infection, unspecified] Episodic Residual codes; unclassified (4 sources) Tobacco use and exposure - finding; Translations: [Tobacco use] 07-02-2017 Episodic Schizophrenia and other psychotic disorders (1 source) Delusional disorders; Translations: [Delusional disorders] Onset: 05-09-2024 Chronic Spondylosis; intervertebral disc disorders; other back problems (2 sources) Degeneration of cervical intervertebral disc; Translations: [Other cervical disc degeneration, unspecified cervical region] Chronic Sprains and strains (6 sources) Strain of neck muscle; Translations: [Strain of muscle, fascia and tendon at neck level, initial encounter] Episodic Superficial injury; contusion (2 sources) Contusion of hand; Translations: [Contusion of right hand, initial encounter] Episodic Unclassified (2 sources) No history of clinical finding in subject; Translations: [No significant past medical history] Results Test Name Value Interpretation Reference Range Facility [facility] 08-05-2024 [facility] Telephone (FAMWS) DUARTE RUELAS ([id number]) 1980 M Date Time Provider Department 08/05/24 KRANTHI LIM [facility] During your visit today, we recorded the following information about you: Mayco Nichols LPN 08/05/2024 4:15 PM Signed Unsure if this number still belongs to patient. Requested call back if phone belongs to Duarte and Dr Varner patient. Mayco Nichols LPN Allergies As of Date: 08/05/2024 (No Known Allergies) Date Reviewed: 02/23/2022 Reviewed by: Mayco Nichols LPN - Fully Assessed Reason for Visit: Appointment [[id number]] Cmt: ER follow up from 07/31/24 [facility] Problem List As Of Date 08/05/2024 Noted Resolved Alcoholism in remission (HCC) [F10.21] Bipolar disorder (HCC) [F31.9] Anxiety [F41.9] Erectile dysfunction [N52.9] Obesity (BMI 30.0-34.9) [E66.811] PTSD (post-traumatic stress disorder) [F43.10] Tobacco use [Z72.0] Encounter Status:Closed by MAYCO NICHOLS on 10/07/24 Normal [facility] Urine Cultureon 08-02-2024 [facility] Mixed Gram Positive Organisms Ribera Count 11,000-25,000 MIXC Mixed contaminants. Submit a new specimen if indicated. Normal [facility] Comment on above: Performed By: #### M 100.2200 #### [facility] [address] [place], [address] CBC W/Diff, Automatedon 07-18 PATH REV Reviewed Normal [facility] Comment on above: Result Comment: Neut rophilic leukocytosis. Clinical correlation necessary. Dennis Mercado M.D. 08/01/24 AMENDED REPORT 08/01/24 1128 PATH REV previously reported as: January Performed By: #### L 501.9100, L505.5000, L100.0100, L501.8400, L500.4050, L501.8300 #### [facility] [address] [place], [address] Basic Metabolic Profile (BMP )on 07-31-2024 BUN/CRE 8.8 RATIO Low 10-20 [facility] Comment on above: Performed By: #### L 501.9100, L505.5000, L100.0100, L501.8400, L500.4050, L501.8300 #### [facility] [address] [place], [address] CA,Total 8.6 mg/dL Normal 8.5-10.1 [facility] Comment on above: Performed By: #### L 501.9100, L505.5000, L100.0100, L501.8400, L500.4050, L501.8300 #### [facility] [address] [place], [address] Chloride [Moles/Vol] 102 mmol/L Normal 98-107 [facility] Comment on above: Performed By: #### L 501.9100, L505.5000, L100.0100, L501.8400, L500.4050, L501.8300 #### [facility] [address] [place], [address] CO2 [Moles/Vol] 25.0 mmol/L Normal 21.0-32.0 [facility] Comment on above: Performed By: #### L 501.9100, L505.5000, L100.0100, L501.8400, L500.4050, L501.8300 #### [facility] [address] [place], [address] Creatinine [Mass/Vol] 1.02 mg/dL Normal 0.70-1.30 [facility] Comment on above: Result Comment: The validity of the calculated GFR GFRAA in patients over 70 years has not been determined. Clinical correlation is essential. Performed By: #### L 501.9100, L505.5000, L100.0100, L501.8400, L500.4050, L501.8300 #### [facility] [address] [place], [address] ECRCL 114.70 ml/min Normal [facility] Comment on above: Performed By: #### L 501.9100, L505.5000, L100.0100, L501.8400, L500.4050, L501.8300 #### [facility] [address] [place], [address] EST GFR - AA 102 mL/min Normal >60 [facility] Comment on above: Result Comment: Afri can [place] GFR Calc Performed By: #### L 501.9100, L505.5000, L100.0100, L501.8400, L500.4050, L501.8300 #### [facility] [address] [place], [address] GAP 7 Normal 5-15 [facility] Comment on above: Performed By: #### L 501.9100, L505.5000, L100.0100, L501.8400, L500.4050, L501.8300 #### [facility] [address] [place], [address] GFR/1.73 sq M.predicted among non-blacks MDRD (S/P/Bld) [Vol rate/Area] 84 mL/min/{1.73_m2} Normal >60 [facility] Comment on above: Result Comment: Non- GFR Calc Performed By: #### L 501.9100, L505.5000, L100.0100, L501.8400, L500.4050, L501.8300 #### [facility] [address] [place], [address] Glucose [Mass/Vol] 120 mg/dL High 74-106 [facility] Comment on above: Result Comment: Fast ing Glucose result from 100 to 125 mg/dL suggests IMPAIRED HOMEOSTASIS per A.D.A. criteria. Performed By: #### L 501.9100, L505.5000, L100.0100, L501.8400, L500.4050, L501.8300 #### [facility] [address] [place], [address] Potassium [Moles/Vol] 3.9 mmol/L Normal 3.5-5.1 [facility] Comment on above: Performed By: #### L 501.9100, L505.5000, L100.0100, L501.8400, L500.4050, L501.8300 #### [facility] [address] [place], [address] Sodium [Moles/Vol] 134 mmol/L Low 136-145 [facility] Comment on above: Performed By: #### L 501.9100, L505.5000, L100.0100, L501.8400, L500.4050, L501.8300 #### [facility] [address] [place], [address] Urea nitrogen [Mass/Vol] 9 mg/dL Normal 7-18 [facility] Comment on above: Performed By: #### L 501.9100, L505.5000, L100.0100, L501.8400, L500.4050, L501.8300 #### [facility] [address] [place], [address] Emergency Department Summary on 07-31-2024 Emergency Department Summary [facility] Medical Records Department [address] [place] [address] Emergency Department Summary 07/31/24 MR#: [id number] Acct: [id number] Name: DUARTE RUELAS III Rep #: [id number] : 1980 44 From: Av Guido MD PCP: Dr. Sukhdev Mart MD Status:DEP ER Location: ED HPI History of Present Illness Chief Complaint: Complaint Detail of Chief Complaint: 4-day history of dysuria and small amounts of urine. Informant: patient Pain Onset: Days Context: Gradual Onset Timing: Continuous Current Severity: Mild Maximum Severity: Mild Narrative Narrative: 44-year-old male history of PTSD D and bipolar. States the last 4 days he said painful urination and only small amounts. But he is able to urinate. No prior history of Byrd catheter or urologic surgery. He denies any vomiting or diarrhea. Denies any gross hematuria. Prior similar symptoms: Yes Recent Illness/Hospitalization : No PFSH PFSH Medical History Marijuana smoker Explosive personality disorder in adult PTSD (post-traumatic stress disorder) Depression Anxiety Bipolar disorder Asthma Smoker DDD (degenerative disc disease) Home Medications ???Medication ???Instructions ???Recorded ???Last Taken ???Type NK 07/31/24 Unknown History Allergy/AdvReac Type Severity Reaction Status Date / Time No Known Allergies Allergy Verified 07/31/24 20:20 Surgical History History of appendectomy Social History Smoking Status: Current every day smoker tobacco type: cigarettes ROS ROS ED ROS Narrative Small amount of urination. Dysuria. Constitutional Constitutional ED: Denies chills or fever(s) Eyes Eyes: Denies blurry vision ENT ENT ED: Denies ear pain Cardiovascular Cardiovascular: Denies chest pain Respiratory/Chest Respiratory/Chest: Denies cough Gastrointestinal Gastrointestinal: Denies abdominal pain Genitourinary Genitourinary ED: Reports dysuria and urinary frequency; Denies hematuria Musculoskeletal Musculoskeletal: Denies arthralgias, back pain or myalgias Integumentary Denies abscess or rash Neurologic Neurologic: Reports headache(s) Psychiatric Psychiatric: Denies anxiety Endocrine Endocrinology: Denies polydipsia Hematologic/Lymphatic Hematologic/Lymphatic: Denies easy bleeding Allergic/Immunologic Allergic/Immunologic ED: Denies mouth swelling, tongue swelling or urticaria EXAM Physical Exam Narrative Exam Narrative: 44-year-old male vital signs are stable initial temperature 98.1 repeat nine 9.8. He does not look septic toxic or any distress. Pulse ox 9 9% on room air no hypoxia. H EENT exam pupils round reactive light. Extra motions are intact. Normal speech. Poor dentition. Moist weeks membranes. No facial trauma. No droop. Neck nontender. Back nontender. Lungs clear to auscultation bilaterally. Heart regular rhythm rate about 105 no murmur. Chest wall and ribs nontender. Abdomen is soft, nontender, nondistended normal bowel sounds no peritoneal signs. External exam unremarkable. Moving all 4 extremities. 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 Normal dorsi plantarflexion. Nontender no edema. Neurologically is awake and alert no focal motor deficits. Answering questions and following commands. Const Vital Signs: 07/31/24 20:17 07/31/24 21:20 07/31/24 22:00 Temperature 98.1 F 99.8 F H 99.2 F H Temperature Source Oral Oral Oral Pulse Rate 104 H 108 H 105 H Respiratory Rate 18 18 16 Blood Pressure 141/77 H 124/82 H 122/79 H Blood Pressure Mean 98 96 93 Pulse Ox 99 97 96 Oxygen Delivery Method Room Air Room Air Room Air 07/31/24 22:02 Temperature 99.2 F H Temperature Source Oral Pulse Rate Respiratory Rate Blood Pressure Blood Pressure Mean Pulse Ox Oxygen Delivery Method Positive well nourished and well developed; Negative for cachectic, contractures or unkempt General Appearance ED: well developed and NAD; Negative for unkempt, cachectic, contractures or pallor Nutritional Appearance: Negative for cachectic HEENT Reports moist mucous membranes normocephalic and atraumatic; Negative for trauma or tenderness Eyes PERRL and EOMs intact bilaterally General Eye ED: Negative for pale conjunctiva or scleral icterus Neck no lymphadenopathy, supple and no JVD General: Negative for tenderness Resp normal respiratory effort and clear to auscultation bilaterally Effort and Inspection: Negative for retractions Auscultation: Negative for rales, rhonchi, wheezes or diminished lung sounds Cardio regular rhythm, S1 normal heart sound and no murmurs; Negative for regular rate Rate: tachycardic GI non-ten (more content not included)... Normal [facility] Urinalysis, Completeon 07-31 BACTERIA 1+ /hpf Normal None Seen [facility] Comment on above: Order Comment: metha mphetamine suspected Performed By: #### L 501.9100, L505.5000, L100.0100, L501.8400, L500.4050, L501.8300 #### [facility] [address] [place], [address] RBC 0-5 SEEN Normal 0-5 [facility] Comment on above: Order Comment: metha mphetamine suspected Performed By: #### L 501.9100, L505.5000, L100.0100, L501.8400, L500.4050, L501.8300 #### [facility] [address] [place], [address] WBC >100 SEEN Normal 0-5 [facility] Comment on above: Order Comment: metha mphetamine suspected Performed By: #### L 501.9100, L505.5000, L100.0100, L501.8400, L500.4050, L501.8300 #### [facility] [address] [place], [address] EPI,SQUAMOUS 0 SEEN Normal 0-5 [facility] Comment on above: Order Comment: metha mphetamine suspected Performed By: #### L 501.9100, L505.5000, L100.0100, L501.8400, L500.4050, L501.8300 #### [facility] [address] [place], [address] Mucus Ql (Urine sed) 0 SEEN Normal [facility] Comment on above: Order Comment: metha mphetamine suspected Performed By: #### L 501.9100, L505.5000, L100.0100, L501.8400, L500.4050, L501.8300 #### [facility] [address] [place], [address] Acetaminophen (Tylenol) Leve radha 02-21-2024 Acetaminophen [Mass/Vol] ug/mL Low 10.0-30.0 [facility] Comment on above: Performed By: #### L 501.9100, L505.5000, L100.0100, L501.8400, L500.4050, L501.8300 #### [facility] [address] [place], [address] Alcohol, Blood (Medical)-Ser umon 02-21-2024 SERUM ETOH < 3.0 Normal [facility] Comment on above: Result Comment: The serum:whole blood ethanol ratio is approximately 1.14 and varies slightly with hematocrit. Medical Alcohol reference interval and critical value in non-tolerant individuals; 50 - 100 Impairment 100 Intoxication 100 - 250 Severe Poisoning 250 - 400 Deep/possible fatal coma Performed By: #### L 501.9100, L505.5000, L100.0100, L501.8400, L500.4050, L501.8300 #### [facility] [address] [place], [address] Brain/Head without Contrasto n 02-21-2024 Brain/Head without Contrast [facility] [address] [place] [address] Brain/Head without Contrast MR#: [id number] Acct: [id number] Name: DUARTE RUELAS FRANCHESCA Rep #: [id number] : 1980 M 43 From: Chelsy Barrios MD PCP: Dr. Sukhdev Mart MD Status: REG ER Study: Brain/Head without Contrast Date of Exam: 03/10 Exam# [id number] Ordering [place]: [place] [id number] EXAM: CT HEAD WITHOUT INTRAVENOUS CONTRAST CLINICAL INDICATION: Change in Mental Status TECHNIQUE: Multiple axial images were obtained of the head without intravenous contrast. This CT exam was performed using one or more of the following dose reduction techniques: automated exposure control, adjustment of the mA and/or kV according to patient size, and/or use of iterative reconstruction technique. RADIATION DOSE: CTDIvol = 44.99 mGy, DLP = 863.60 mGy-cm COMPARISON: No relevant prior studies available. FINDINGS: BRAIN AND EXTRA-AXIAL SPACES: Unremarkable. No intra- or extra-axial hemorrhage. No evidence of acute infarct. No intracranial mass or mass effect. There is preservation of the montiel/white matter interface. Posterior fossa structures are unremarkable. Ventricles are appropriate for age. No hydrocephalus. Basal cisterns are patent. BONES/JOINTS: Unremarkable. No discrete lytic or blastic abnormalities. SINUSES: Trace mucosal thickening in the floor of the left maxillary sinus and slight mucosal thickening in a few ethmoid air cells. MASTOID AIR CELLS: Unremarkable. Clear. ORBITS: Visualized globes, extraocular muscles, optic nerves and retrobulbar fat appear unremarkable. DENTAL: Advanced periodontal disease, there are periapical lucencies around multiple tooth roots in the maxilla. The mandible is not included. CT/Brain/Head without Contrast IMPRESSION: No acute findings in the head/brain. Advanced periodontal disease. Electronically Signed: Chelsy Barrios MD at 5:25 EDT , CC: Dr. Anurag Cody MD; Dr. Sukhdev Mart MD Chief Service Observer: Signed Normal [facility] CBC W/Diff, Automatedon 06-0 Absolute Lymph 3.24 X10 3/uL Normal 0.83-4.51 [facility] Comment on above: Performed By: #### L 501.9100, L505.5000, L100.0100, L501.8400, L500.4050, L501.8300 #### [facility] [address] [place], [address] Absolute Neut 9.6 X10 3/uL High 2.0-7.7 [facility] Comment on above: Performed By: #### L 501.9100, L505.5000, L100.0100, L501.8400, L500.4050, L501.8300 #### [facility] [address] [place], [address] Basophils/100 WBC (Bld) 0.7 % Normal 0-1 [facility] Comment on above: Performed By: #### L 501.9100, L505.5000, L100.0100, L501.8400, L500.4050, L501.8300 #### [facility] [address] [place], [address] Eosinophils/100 WBC (Bld) 1.2 % Normal 0-5 [facility] Comment on above: Performed By: #### L 501.9100, L505.5000, L100.0100, L501.8400, L500.4050, L501.8300 #### [facility] [address] [place], [address] Erythrocyte distribution width (RBC) [Ratio] 13.3 % Normal 11.6-14.6 [facility] Comment on above: Performed By: #### L 501.9100, L505.5000, L100.0100, L501.8400, L500.4050, L501.8300 #### [facility] [address] [place], [address] Hematocrit (Bld) [Volume fraction] 46.6 % Normal 40-54 [facility] Comment on above: Performed By: #### L 501.9100, L505.5000, L100.0100, L501.8400, L500.4050, L501.8300 #### [facility] [address] [place], [address] Hemoglobin (Bld) [Mass/Vol] 15.5 g/dL Normal 13.0-16.5 [facility] Comment on above: Performed By: #### L 501.9100, L505.5000, L100.0100, L501.8400, L500.4050, L501.8300 #### [facility] [address] [place], [address] IG% 0.300 Normal 0.0-0.9 [facility] Comment on above: Result Comment: IG% - Immature Granulocytes (promyelocytes, myelocytes and metamyelocytes) > 1% indicates that a LEFT SHIFT is Present. Performed By: #### L 501.9100, L505.5000, L100.0100, L501.8400, L500.4050, L501.8300 #### [facility] [address] [place], [address] Lymphocytes/100 WBC (Bld) 22.2 % Normal 19-41 [facility] Comment on above: Performed By: #### L 501.9100, L505.5000, L100.0100, L501.8400, L500.4050, L501.8300 #### [facility] [address] [place], [address] MCH (RBC) [Entitic mass] 30.0 pg Normal 27.0-32.0 [facility] Comment on above: Performed By: #### L 501.9100, L505.5000, L100.0100, L501.8400, L500.4050, L501.8300 #### [facility] [address] [place], [address] MCHC (RBC) [Mass/Vol] 33.3 g/dL Normal 32-36 [facility] Comment on above: Performed By: #### L 501.9100, L505.5000, L100.0100, L501.8400, L500.4050, L501.8300 #### [facility] [address] [place], [address] MCV (RBC) [Entitic vol] 90.1 fL Normal 80-94 [facility] Comment on above: Performed By: #### L 501.9100, L505.5000, L100.0100, L501.8400, L500.4050, L501.8300 #### [facility] [address] [place], [address] Monocytes/100 WBC (Bld) 9.8 % Normal 0-10 [facility] Comment on above: Performed By: #### L 501.9100, L505.5000, L100.0100, L501.8400, L500.4050, L501.8300 #### [facility] [address] [place], [address] Neutrophils/100 WBC (Bld) 65.8 % Normal 47-70 [facility] Comment on above: Performed By: #### L 501.9100, L505.5000, L100.0100, L501.8400, L500.4050, L501.8300 #### [facility] [address] [place], [address] Nucleated RBC (Bld) [#/Vol] 0 10*3/uL Normal 0-5 [facility] Comment on above: Performed By: #### L 501.9100, L505.5000, L100.0100, L501.8400, L500.4050, L501.8300 #### [facility] [address] [place], [address] Platelet mean volume (Bld) [Entitic vol] 9.7 fL Normal 6.2-12.0 [facility] Comment on above: Performed By: #### L 501.9100, L505.5000, L100.0100, L501.8400, L500.4050, L501.8300 #### [facility] [address] [place], [address] Platelets (Bld) [#/Vol] 395 10*3/uL Normal 150-450 [facility] Comment on above: Performed By: #### L 501.9100, L505.5000, L100.0100, L501.8400, L500.4050, L501.8300 #### [facility] [address] [place], [address] RBC (Bld) [#/Vol] 5.17 10*6/uL Normal 4.6-6.2 [facility] Comment on above: Performed By: #### L 501.9100, L505.5000, L100.0100, L501.8400, L500.4050, L501.8300 #### [facility] [address] [place], [address] RDW SD 44.2 fl High 35.1-43.9 [facility] Comment on above: Performed By: #### L 501.9100, L505.5000, L100.0100, L501.8400, L500.4050, L501.8300 #### [facility] [address] [place], [address] WBC (Bld) [#/Vol] 14.6 10*3/uL High 4.4-11.0 [facility] Comment on above: Performed By: #### L 501.9100, L505.5000, L100.0100, L501.8400, L500.4050, L501.8300 #### [facility] [address] [place], [address] Comprehensive Metabolic Prof [facility] 02-21-2024 Albumin [Mass/Vol] 4.1 g/dL Normal 3.2-5.0 [facility] Comment on above: Performed By: #### L 501.9100, L505.5000, L100.0100, L501.8400, L500.4050, L501.8300 #### [facility] [address] [place], [address] Albumin/Globulin [Mass ratio] 1.2 {ratio} Normal 0.9-2.4 [facility] Comment on above: Performed By: #### L 501.9100, L505.5000, L100.0100, L501.8400, L500.4050, L501.8300 #### [facility] [address] [place], [address] ALK P 75 U/L Normal 45-117 [facility] Comment on above: Performed By: #### L 501.9100, L505.5000, L100.0100, L501.8400, L500.4050, L501.8300 #### [facility] [address] [place], [address] ALT [Catalytic activity/Vol] 26 U/L Normal 16-61 [facility] Comment on above: Performed By: #### L 501.9100, L505.5000, L100.0100, L501.8400, L500.4050, L501.8300 #### [facility] [address] [place], [address] AST [Catalytic activity/Vol] 22 U/L Normal 15-37 [facility] Comment on above: Performed By: #### L 501.9100, L505.5000, L100.0100, L501.8400, L500.4050, L501.8300 #### [facility] [address] [place], [address] Bilirubin [Mass/Vol] 1.00 mg/dL Normal 0.20-1.00 [facility] Comment on above: Result Comment: For patients on eltrombopag therapy, use of Dimension [place] TBIL is not recommended. Performed By: #### L 501.9100, L505.5000, L100.0100, L501.8400, L500.4050, L501.8300 #### [facility] [address] [place], [address] BUN/CRE 9.8 RATIO Low 10-20 [facility] Comment on above: Performed By: #### L 501.9100, L505.5000, L100.0100, L501.8400, L500.4050, L501.8300 #### [facility] [address] [place], [address] CA,Total 9.2 mg/dL Normal 8.5-10.1 [facility] Comment on above: Performed By: #### L 501.9100, L505.5000, L100.0100, L501.8400, L500.4050, L501.8300 #### [facility] [address] [place], [address] Chloride [Moles/Vol] 108 mmol/L High 98-107 [facility] Comment on above: Performed By: #### L 501.9100, L505.5000, L100.0100, L501.8400, L500.4050, L501.8300 #### [facility] [address] [place], [address] CO2 [Moles/Vol] 22.0 mmol/L Normal 21.0-32.0 [facility] Comment on above: Performed By: #### L 501.9100, L505.5000, L100.0100, L501.8400, L500.4050, L501.8300 #### [facility] [address] [place], [address] Creatinine [Mass/Vol] 1.43 mg/dL High 0.70-1.30 [facility] Comment on above: Result Comment: The validity of the calculated GFR GFRAA in patients over 70 years has not been determined. Clinical correlation is essential. Performed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
[2025-05-05 05:32] VITALS: BP 125/79; PULSE 63; RESP 18; TEMP 36.6; O2SAT 96
== END 2025-05-05 05:33 | disposition home or self-care (01) ==
PROVIDERS: Emergency Provider Emergency Medicine; PCP Family Medicine; Visit Provider Emergency Medicine
DX: S16.1XXA Strain of muscle, fascia and tendon at neck level, initial encounter (principal); M50.30 Other cervical disc degeneration, unspecified cervical region; J45.909 Unspecified asthma, uncomplicated; F17.210 Nicotine dependence, cigarettes, uncomplicated; X58.XXXA Exposure to other specified factors, initial encounter
CPT/HCPCS: 72125; 96372; 99282